=== PATIENT | male | born 1965 | race Caucasian/White ===

== ENCOUNTER 2019-09-28 13:39 | Outpatient (REF) | payer BC, SELFPAY ==
[2019-09-28 14:29] LABS: HCT 48.8 % (40.0-50.0); HGB 16.2 g/dL (13.5-17.5); Mean Corp. HGB Concentration 33.2 g/dL (32.0-36.0); Mean Corpuscular Hemoglobin 28.7 pg (27.0-33.0); Mean Corpuscular Volume 86.4 fL (80-95); Mean Platelet Volume 11.9 fL (8.0-11.0); Platelet Count 218 x1000/uL (130-400); RBC 5.65 m/cumm (4.50-6.00); RBC Distribution Width 13.3 % (11.8-14.1)
[2019-09-28 14:36] LABS: ALT 62 U/L (16-63); AST 29 U/L (15-37); Albumin 3.8 g/dL (3.4-5.0); Alkaline Phosphatase 50 U/L (46-116); BUN 17 mg/dL (7-18); Bilirubin, Total 0.6 mg/dL (0.2-1.0); CREATININE 0.87 mg/dL (0.70-1.30); Calcium 8.8 mg/dL (8.5-10.1); Calculated LDL 129 mg/dL; Chloride 103 mmol/L (98-107); Cholesterol 210 mg/dL (<200); Glucose 93 mg/dL (74-106); HDL Cholesterol 57 mg/dL (40-60); Potassium 4.2 mmol/L (3.5-5.1); Sodium 141 mmol/L (136-145); Triglyceride 124 mg/dL (<150)
[2019-09-28 14:54] LABS: Microalb ug/mg Crea 5.2 ug/mg Cr
== END 2019-09-28 13:59 ==
LOC: NCHCN 13:39
PROVIDERS: PCP Nurse Practitioner Family; Visit Provider Nurse Practitioner Family
DX: R03.0 Elevated blood-pressure reading, without diagnosis of hypertension (principal)
CPT/HCPCS: 80053; 80061; 85027; 82043; 82570

== ENCOUNTER 2020-07-20 15:17 | Emergency (ER) | payer BC, SELFPAY ==
[2020-07-20 15:22] VITALS: BP 162/96; PULSE 77; RESP 18; TEMP 36.4; O2SAT 96
--- NOTE | 2020-07-20 15:30 | DI.US_ITS ---
EXAM: US LOWER EXTREMITY VENOUS LT CLINICAL HISTORY: swelling, pain, r/o DVT TECHNIQUE: Left lower extremity venous ultrasound performed using grayscale, color-flow, and spectra l Doppler analysis. COMPARISON: No exams were available for comparison FINDINGS: The left common femoral and femoral veins demonstrate normal compressibility, augmentation, and color Doppler. There is thrombus seen in the left popliteal vein extending into the mid posterior tibialis vein. There is also a mid posterior left calf vein with acute deep venous thrombus present. The sa phenofemoral junction is unremarkable. There is no evidence of a Torres cyst. The soft tissues are u nremarkable. IMPRESSION: Acute deep venous thrombus involving the left popliteal vein and extending into the mid posterior tib ialis vein. Acute DVT is also seen involving a mid posterior calf vein. DATA REPOSITORY:
--- NOTE | 2020-07-20 15:36 | ED.GENADUL_ITS ---
Discharge Plan Disposition Patient Disposition: HOME Condition: Stable Discharge Details Clinical Impression: Acute deep vein thrombosis (DVT) of left lower extremity Primary Care Provider: Cesar Stoner ED Provider: Daniele Orlelana Home Meds and New Rx's Prescriptions: New apixaban 5 mg tablet 5 mg PO BID 30 Days Qty: 60 RF: 0 No Action ibuprofen 800 mg Tablet 800 mg PO Q8H RF: 0 Discharge Instructions Instructions: Deep Vein Thrombosis (ED) Additional Instructions: Please take the apixaban as prescribed 10 mg twice a day for 7 days, then 5 mg twice a day. We will ask our care management team to arrange a follow-up with you in clinic with Cesar Stoner. Return if you develop chest pain, shortness of breath, cool/pale/numbness of the left leg or any other acute concerns. Medical Decision Making 54-year-old male presents with left calf swelling after walking up and down a ladder painting the exterior of the home this weekend. He does not have chest pain or shortness of breath. No other insult or injury to the area. The leg is edematous and swollen. No palpable cords. Concerning for DVT, Torres's cyst, and patient referred for ultrasound. Patient's ultrasound reveals a positive DVT. Screening labs obtained. I will place him on apixaban. We will arrange an outpatient follow-up with his primary care Cesar Stoner. Lab Data Lab results reviewed: Yes I reviewed the patient's lab results. Labs: Laboratory Results - last 24 hr 07/20/20 07/20/20 07/20/20 16:30 16:30 16:30 WBC 8.97 RBC 5.10 Hgb 14.7 Hct 44.5 MCV 87.3 MCH 28.8 MCHC 33.0 RDW 12.4 Plt Count 133 MPV 11.2 H Immature Gran % 0.6 Neutrophils % 69.4 Lymphocytes % 16.5 Monocytes % 10.7 Eosinophils % 2.2 Basophils % 0.6 Nucleated RBC % 0 Absolute Neutrophils 6.23 Absolute Lymphocytes 1.48 Absolute Monocytes 0.96 H Absolute Eosinophils 0.20 Absolute Basophils 0.05 PT 10.4 INR 1.0 APTT 24.1 Sodium 138 Potassium 3.8 Chloride 104 Carbon Dioxide 26.7 Anion Gap 7.3 BUN 20 H Creatinine 0.91 Estimated GFR/1.73 m2 >= 60.00 Glucose 91 Calcium 8.1 L Total Bilirubin 0.6 AST 28 ALT 44 Alkaline Phosphatase 50 Total Protein 6.8 Albumin 3.5 HPI General Mode of arrival: ambulatory . Date/Time Provider Initiated Documentation: 07/20/20 15:19 . Limitations to Documentation: no limitations . Information obtained by: patient . History of Present Illness 54 year old M presents to the emergency department with the chief complaint of Left calf pain and swelling, described as moderate, Quality is described as dull, and is localized to the left and lower extremity. Patient reports no radiation. Patient started experiencing this day(s) and it has been constant. No relieving factors improve symptom(s), No exacerbating factors reported . Patient notes denies chest pain, shortness of breath and syncope. Patient did receive the following treatments prior to arrival, none Related Data Home Medications Medication Instructions Recorded Confirmed apixaban 5 mg PO BID 30 Days #60 tab 07/20/20 ibuprofen 800 mg PO Q8H 07/20/20 07/20/20 Previous Rx's Medication Instructions Recorded apixaban 5 mg PO BID 30 Days #60 tab 07/20/20 Allergies Allergy/AdvReac Type Severity Reaction Status Date / Time amoxicillin [Amoxicillin] Allergy Severe swelling, Unverified 07/08/20 13:15 hives, blotchy red everywhere General Stated Complaint: Vascular GABE: 3 Review of Systems Narrative: Otherwise healthy and well. 6 systems reviewed and negative. [facility] Social History (Updated 07/08/20 @ 13:44 by SHAD Bell) Smoking/Tobacco Use Status: Never Smoking risk assessment performed?: Yes Alcohol Intake: current Alcohol Intake frequency: holidays/special occasions only Drug use: Never Substance use type: does not use Do you feel safe at home: Yes Do you feel safe in your relationship?: Yes Exam Narrative Exam Narrative: GEN: awake, alert, oriented 3. Pleasant, well groomed, interactive. HEAD: Normocephalic, atraumatic EYES: PERRL, EOMI NECK: Full ROM, no TASHI, no menigismus CHEST/RESP: Nontender, clear to auscultation bilateral, no wheeze/rhonchi/rales CARDIOVASCULAR: RRR, no murmur, rub jennifer. 2+ Rad pulse bilateral EXT: Full ROM, calf swelling approximately 2 cm greater circumference than the left. No laxity of the knee. Normal perfusion. Neuro: Grossly normal neurologic exam, conversant, interactive. Psych: Speech fluent, thoughts congruent, affect normal Course Vital Signs Vital signs: Vital Signs Temperature 36.4 C L 07/20/20 15:22 Pulse 77 07/20/20 15:22 Respiratory Rate 18 07/20/20 15:22 Blood Pressure 162/96 H 07/20/20 15:22 Pulse Oximetry 96 07/20/20 15:22 Temperature 36.4 C L 07/20/20 15:22 Temperature Source Tympanic 07/20/20 15:22 Pulse 77 07/20/20 15:22 Respiratory Rate 18 07/20/20 15:22 Blood Pressure 162/96 H 07/20/20 15:22 Blood Pressure Position Sitting 07/20/20 15:22 Pulse Oximetry 96 07/20/20 15:22 Oxygen Delivery Method Room Air 07/20/20 15:22 Oxygen Flow Rate 0 07/20/20 15:22 Pain Level 4 07/20/20 15:22 Comment 07/20/20 15:22
--- NOTE | 2020-07-20 16:17 | DI.VRAD_ITS ---
PROCEDURE INFORMATION: Exam: US Duplex Left Lower Extremity Veins, Limited Exam date and time: 07/20/2020 4:03 PM Age: 54 years old Clinical indication: Other: Left leg pain and swelling TECHNIQUE: Imaging protocol: Real-time Duplex ultrasound of the Left Lower Extremity with 2-D day scale, color Doppler flow and spectral waveform analysis with image documentation. Limited exam focused on the left lower extremity veins. COMPARISON: No relevant prior studies available. FINDINGS: There is normal compression, flow, and augmentation in the left common femoral vein, superficial femoral vein. However, there are are near total occlusions of the left popliteal vein extending into the mid posterior tibial vein. A mid posterior left calf vein is also remarkable for acute deep venous thrombosis. There is no color flow in the color Doppler interrogation of the affected veins. IMPRESSION: Acute deep venous thrombosis involving the left popliteal vein, middle posterior tibial vein and a mid posterior calf vein. Dictated and Authenticated by: Izabella Mittal MD. Ordering:MARIYA Sanabria MD
--- NOTE | 2020-07-20 16:35 | NUR.NOTE ---
Referral faxed to [facility], within a week f/u for DVTNursing Note:
[2020-07-20 16:36] LABS: Abs Immature Grans 0.05 10^3/uL (0.0-0.06); Absolute Basophil Count 0.05 10^3/uL (0.0-0.2); Absolute Lymphocyte Count 1.48 10^3/uL (1.2-3.4); Absolute Monocyte Count 0.96 10^3/uL (0.1-0.8); Absolute Neutrophil Count 6.23 10^3/uL (1.2-6.7); Basophils % 0.6; Eosinophils % 2.2; HCT 44.5 % (40.0-50.0); HGB 14.7 g/dL (13.5-17.5); Immature Grans % 0.6; Lymphocytes % 16.5; MCH 28.8 pg (27.0-33.0); MCV 87.3 fL (80-95); MPV 11.2 fL (8.0-11.0); Monocytes % 10.7; Neutrophils % 69.4; Nucleated RBC 0 %; Platelet Count 133 10^3/uL (130-400); RDW 12.4 % (11.8-14.1); RDW-SD 39.8 fL; WBC 8.97 10^3/uL (4.4-10.8)
[2020-07-20 16:51] LABS: ALT 44 U/L (16-63); AST 28 U/L (15-37); Albumin 3.5 g/dL (3.4-5.0); Alkaline Phosphatase 50 U/L (46-116); Anion Gap 7.3 mmol/L (3-11); BUN 20 mg/dL (7-18); Bilirubin, Total 0.6 mg/dL (0.2-1.0); CO2 26.7 mmol/L (21.0-32.0); CREATININE 0.91 mg/dL (0.70-1.30); Calcium 8.1 mg/dL (8.5-10.1); Chloride 104 mmol/L (98-107); Glucose 91 mg/dL (74-106); Potassium 3.8 mmol/L (3.5-5.1); Sodium 138 mmol/L (136-145); Total Protein 6.8 g/dL (6.4-8.2)
[2020-07-20 17:00] LABS: PTT Activated 24.1 sec (21.0-27.5); Prothrombin Time 10.4 sec (9.3-11.0)
[2020-07-20] MEDS: Apixaban 5 MG TAB 10 MG PO (17:25)
== END 2020-07-20 17:35 | disposition home or self-care (01) ==
PROVIDERS: Emergency Provider Emergency Medicine; PCP Nurse Practitioner Family
DX: I82.432 Acute embolism and thrombosis of left popliteal vein (principal); I82.442 Acute embolism and thrombosis of left tibial vein; I82.4Z2 Acute embolism and thrombosis of unspecified deep veins of left distal lower extremity
CPT/HCPCS: 36415; 80053; 99284; 85025; 85610; 85730; 93971

== ENCOUNTER 2020-07-21 03:39 | Emergency (ER) | payer BC, SELFPAY ==
[2020-07-21 03:42] VITALS: PULSE 90; RESP 16; TEMP 37.3; O2SAT 97
--- NOTE | 2020-07-21 03:54 | ED.GENADUL_ITS ---
Discharge Plan Disposition Patient Disposition: HOME Condition: Good Discharge Details Clinical Impression: Pain of left calf Primary Care Provider: Cesar Stoner ED Provider: Jerrod Packer Home Meds and New Rx's Prescriptions: Continued apixaban 5 mg tablet 5 mg PO BID 30 Days Qty: 60 RF: 0 Discontinued ibuprofen 800 mg Tablet 800 mg PO Q8H RF: 0 Discharge Instructions Instructions: Deep Vein Thrombosis (ED) Additional Instructions: Please take 1000 mg of Tylenol every 6 hours for pain. If you take a narcotic pain pill, please only take 500 mg of Tylenol as the Ulysses has some Tylenol in it. Please take the Zofran as needed for nausea. Please make sure to elevate your leg above the level of your heart as often as possible. Please use ice to help with the swelling, and an Bhavesh wrap or tight stockings to help with the swelling. Please avoid ibuprofen as this can interact with the apixaban. If you notice any worsening of your symptoms, or any new symptoms such as change in color for your foot, decreased sensation in your foot, worsening pain, or viselike pain, vomiting, diarrhea, fever, chills, shortness of breath, chest pain, numbness, weakness, or fainting , please return immediately to the emergency department for reevaluation. Please follow up with your primary care provider as soon as possible for reassessment and reevaluation. As always, it was a pleasure participating in your medical care today. Referrals: Cesar Stoner, SERVICE ESTABLISHMENT ATTENDANT [Primary Care Provider] - Medical Decision Making 54-year-old female who was just diagnosed with a left lower extremity DVT earlier this afternoon and was started on apixaban presents today for evaluation of pain in his left calf. Patient states that after moving his pain gradually continued throughout the day. He has not taken anything for the pain today. He has returned further recommendations advised to help. He denies any change in sensation, he denies any viselike out and out cigar maker hand-like sensation in his calf. He denies any chest pain or shortness of breath. He has no fever or chills. No numbness or tingling. No other complaints at this time. He has been taking apixaban as directed. Physical exam demonstrates mild swelling of the left calf, when compared to the right. However there is no clinical evidence of compartment syndrome whatsoever. Neurovascular exam is notably intact. He has no chest pain or shortness of breath, no tachycardia or hypoxemia. No evidence of cellulitis. At this time pain is likely secondary to the DVT, and there is no current clinical evidence of acute life-threatening etiology. Will recommend Tylenol, we will give 10 mg Ulysses here, and for pills of 5 mg Ulysses to go. Will give Zofran if any nausea does occur from the Ulysses. Recommend continued ice, notable elevation, and wrapping. Discussed the case with both the patient and his . Discussed red flags which to return. I have extensively reviewed the treatment plan and discharge instructions with the patient and their family. I have addressed all patient concerns at this time. The patient and family was made aware of what symptoms to monitor for that would warrant a return to the emergency department. Discussed the plan with the patient and family, they demonstrate verbal understanding and agreement with our assessment and plan at this time. HPI General Date/Time Provider Initiated Documentation: 07/21/20 03:41 . HPI Narrative: 54-year-old male who was just diagnosed with a left lower extremity DVT earlier this afternoon and was started on apixaban presents today for evaluation of pain in his left calf. Patient states that after moving his pain gradually continued throughout the day. He has not taken anything for the pain today. He has returned further recommendations advised to help. He denies any change in sensation, he denies any viselike out and out cigar maker hand-like sensation in his calf. He denies any chest pain or shortness of breath. He has no fever or chills. No numbness or tingling. No other complaints at this time. He has been taking apixaban as directed. Related Data Home Medications Medication Instructions Recorded Confirmed apixaban 5 mg PO BID 30 Days #60 tab 07/20/20 07/21/20 Previous Rx's Medication Instructions Recorded apixaban 5 mg PO BID 30 Days #60 tab 07/20/20 Allergies Allergy/AdvReac Type Severity Reaction Status Date / Time amoxicillin [Amoxicillin] Allergy Severe Hives Unverified 07/21/20 03:45 General Stated Complaint: Recheck GABE: 4 Review of Systems All systems reviewed & are unremarkable except as noted in HPI and below PFSH Social History Smoking/Tobacco Use Status: Never Smoking risk assessment performed?: Yes Alcohol Intake: current Alcohol Intake frequency: holidays/special occasions only Drug use: Never Substance use type: does not use Do you feel safe at home: Yes Do you feel safe in your relationship?: Yes Exam Narrative Exam Narrative: 1.Const: Well-nourished, Well-developed, appearing stated age 2.Eyes: PERRL, no conjunctival injection, and symmetrical lids. 3.ENT: Atraumatic external nose and ears. Moist MM. Neck: Symmetric, trachea midline, No thyromegaly. 4.CVS: +S1/S2, No murmurs or gallops. Peripheral pulses 2+ and equal in all ext remities. Brisk capillary refill in all extremities. 5.RESP: Unlabored respiratory effort. Clear to auscultation bilaterally. No wheezes rales or rhonchi 6.GI: Soft, Nontender/Nondistended, No hepatosplenomegaly. No guarding or rebound. 7.MSK: Normocephalic/Atraumatic, patient's left lower extremity demonstrates mild swelling in comparison to the right, however it is not tense or firm. No discoloration, dorsalis pedis and posterior tibial pulse +2 bilaterally, good sensation throughout the foot, overall components. No evidence of significant tenderness or ligamentous disruption. No bony tenderness. No evidence of compartment syndrome. 8.Skin: Warm, Dry. No rashes or lesions. 9.Neuro: social services aide II-XII grossly intact. Sensation grossly intact, no focal neurologic deficits. 10.Psych: (AAO) x3. Appropriate mood and affect Course Vital Signs Vital signs: Vital Signs Temperature 37.3 C 07/21/20 03:42 Pulse 90 07/21/20 03:42 Respiratory Rate 16 07/21/20 03:42 Pulse Oximetry 97 07/21/20 03:42 Temperature 37.3 C 07/21/20 03:42 Temperature Source Skin 07/21/20 03:42 Pulse 90 07/21/20 03:42 Respiratory Rate 16 07/21/20 03:42 Blood Pressure Position Sitting 07/21/20 03:42 Pulse Oximetry 97 07/21/20 03:42 Oxygen Delivery Method Room Air 07/21/20 03:42 Oxygen Flow Rate 0 07/21/20 03:42 Pain Level 7 07/21/20 03:42
[2020-07-21] MEDS: HYDROcodone 5/Acetaminophen 325 TAB PO (04:04)
[2020-07-21] MEDS: Ondansetron O.D.T. 4 MG TABEF, 3 TABS/BTL PO (04:04)
== END 2020-07-21 04:10 | disposition home or self-care (01) ==
LOC: ER 04:10
PROVIDERS: Emergency Provider Student in an Organized Health Care Education/Training Program; PCP Nurse Practitioner Family
DX: M79.662 Pain in left lower leg (principal); I82.432 Acute embolism and thrombosis of left popliteal vein
CPT/HCPCS: 99283

== ENCOUNTER 2020-10-03 08:25 | Outpatient (REF) | payer BC, SELFPAY ==
[2020-10-04 09:35] LABS: Hepatitis C Ab w Rflx HCV PCR Negative (Negative)
[2020-10-04 09:41] LABS: HIV-1/2 Ag & Ab Screen Negative (Negative)
[2020-10-04 13:39] LABS: ANA Interpretation Positive (Negative); ANA Titer Pattern 1:80 Speckled
[2020-10-10 18:59] LABS: FACV Specimen Whole Blood
[2020-10-11 17:16] LABS: PT PCR Specimen Whole Blood; Prothrombin G20210A Variant Negative
== END 2020-10-03 08:45 ==
LOC: NCHCN 08:25
PROVIDERS: PCP Nurse Practitioner Family; Visit Provider Nurse Practitioner Family
DX: I82.409 Acute embolism and thrombosis of unspecified deep veins of unspecified lower extremity (principal); Z11.4 Encounter for screening for human immunodeficiency virus [HIV]; Z11.59 Encounter for screening for other viral diseases
CPT/HCPCS: 81240; 81241; 86803; 87389; 86038

== ENCOUNTER 2020-10-11 00:32 | Outpatient (CLI) | payer BC, SELFPAY ==
--- NOTE | 2020-10-11 | DI.US_ITS ---
EXAM: US LOWER EXTREMITY VENOUS LT CLINICAL HISTORY: F/U 07/21/21, DVT,I82.409 TECHNIQUE: Left lower extremity venous ultrasound performed using grayscale, color-flow, and spectra l Doppler analysis. COMPARISON: US US LOWER EXTREMITY VENOUS LT from 07/20/2020 FINDINGS: The left common femoral and femoral demonstrate normal compressibility, augmentation, and color Doppl er. There is thrombus again seen within the left popliteal vein extending into 1 of the posterior tib ialis veins. The thrombus measures approximately 19.4 cm in length. The saphenofemoral junction is unremarkable. There is no evidence of a Torres cyst. The soft tissues are unremarkable. IMPRESSION: Findings positive for DVT within the left popliteal vein extending into 1 of the posterior tibialis v eins. The thrombus measures approximately 19.4 cm in length. Visually, the extent appears unchanged compared to 07/20/2020. DATA REPOSITORY:
== END 2020-10-11 00:33 | disposition home or self-care (01) ==
LOC: DI 00:32
PROVIDERS: PCP Nurse Practitioner Family; Visit Provider Nurse Practitioner Family
DX: I82.432 Acute embolism and thrombosis of left popliteal vein (principal)
CPT/HCPCS: 93971

== ENCOUNTER 2021-03-06 04:07 | Outpatient (CLI) | payer BC, SELFPAY ==
[2021-03-06 11:34] LABS: D-Dimer 339 ng/mlFEU (<500)
[2021-03-09 14:29] LABS: Dilute Russell Viper Venom 43.3 secs (31.9-47.0); LA Cascade Summary (See Note); Silica Clotting Time 45.4 secs (30.2-48.4)
== END 2021-03-06 04:08 | disposition home or self-care (01) ==
LOC: LBO 04:08
PROVIDERS: PCP Nurse Practitioner Family; Visit Provider Internal Medicine Hematology & Oncology
DX: I82.442 Acute embolism and thrombosis of left tibial vein (principal)
CPT/HCPCS: 36415; 87116; 85379

== ENCOUNTER 2023-07-08 10:38 | Day surgery (SDC) | payer BC, SELFPAY ==
[2023-07-08 11:00] VITALS: BP 139/96; PULSE 69; RESP 18; TEMP 36.2; O2SAT 96
--- NOTE | 2023-07-08 12:00 | W.COLOREPORT ---
Date of service: 07/08/23 Time of Service: 12:01 Colonoscopy Report Procedure Description: Procedures performed: 1. Colonoscopy with snare polypectomy x2 2. Cold forceps polypectomy x1 3. Ablation/fulguration/destruction of polyp x1 Preoperative diagnosis: Screening colonoscopy Postoperative diagnosis: Colon polyps, moderate sigmoid diverticulosis Surgeon: Howard Rouse Anesthesia: Sakina Indication for procedure: Patient is a 57-year-old man who has never had a colonoscopy. He has no symptoms. There is no family history of colon cancer. Findings: In the cecum a small 2-3 mm sessile polyp was removed with cold forceps technique. In the transverse colon a very flat polyp about 7 mm in size was removed with hot snare technique. This look like a sessile serrated adenoma. In the rectum there were 2 more 3-5 mm adenomatous?appearing polyps, 1 was removed with hot snare technique and the other 1 was ablated with the tip of the hot snare. There are diverticular changes in the sigmoid colon but no active diverticulitis, stricture or stenosis. No significant hemorrhoidal disease Surveillance/follow-up recommendations: Repeat colonoscopy in 3 years Complications: None Blood loss: Minimal Specimens:?? YES Quality of Prep:?? Good Procedure in detail: Written consent was obtained from the patient who was in agreement with the risks, benefits and indications of the procedure.? We went to the endoscopy suite and laid the patient in left lateral decubitus position.? Anesthesia was administered which was tolerated well.? A timeout was performed and when we are all in agreement we began the procedure. Digital rectal exam and visual examination was performed and within normal limits.? A well?lubricated colonoscope was advanced without difficulty all the way to the cecum identified by the ileocecal valve, and triangular folds and appendiceal orifice.? It was then slowly withdrawn.?? Retroflexion was performed in the rectum.? The findings/interventions are noted above. The scope was then removed and the patient tolerated the procedure well and was then taken back to the PACU in hemodynamically stable condition.
--- NOTE | 2023-07-08 12:03 | W.PM.DSUDISC ---
Date of service: 07/08/23 Time of Service: 12:03 Discharge Plan Disposition Patient Disposition: Home Condition: Good Discharge Details Attending Provider: Josue Rouse Primary Care Provider: José Miguel Marino Home Meds and New Rx's Prescriptions: Continued aspirin 81 mg tablet,delayed release (DR/EC) 81 mg PO DAILY polyethylene glycol 3350 17 gram/dose powder 238 g PO ONCE Qty: 238 0RF Rx Instructions: take per colonoscopy instructions bisacodyl [Dulcolax (bisacodyl)] 5 mg tablet,delayed release (DR/EC) 5 mg PO ONCE Qty: 4 0RF Rx Instructions: take per colonoscopy instructions Discharge Instructions Stand Alone Forms: Anesthesia Discharge Inst., Colonoscopy Post Instructions, Clayton Veloz (DSU) Activity:: Activity as Tolerated Diet:: As Tolerated Discharge Orders Discharge Orders: Discharge Order (Routine); Ordered 07/08/23 Ordered By: Josue Rouse DS: Diagnosis Discharge Diagnosis (1) Colon cancer screening: Status: Acute Asessment and Plan: FINDINGS: Polyps were found and removed from your colon today. This is why we did the procedure. They get sent to pathology and you will get called with those results in another couple of weeks. They are nothing to worry about but mean that you should have another colonoscopy in 3 years. Diverticular findings(diverticulosis) were also found today. This is extremely common and about 50% of the people your age have this disease. It is a benign disease and there is nothing to do about it if you do not have any symptoms of concern.
[2023-07-08 12:05] VITALS: BMI 37.4
--- NOTE | 2023-07-08 12:05 | W.ANESPRE ---
General Info Date of Service Date Performed: 07/08/23 Height: 6 ft Weight: 125.1 kg Body Mass Index (BMI): 37.4 Surgical Procedure: Operation Date: 07/08/23 11:35 Proposed Procedure Side Surgeon p Colonoscopy Josue Rouse MD Meds Allergies and Home Medications Allergies Allergy/AdvReac Type Severity Reaction Status Date / Time amoxicillin [Amoxicillin] Allergy Severe Hives Unverified 07/08/23 11:34 Home Medication Medication Instructions Recorded aspirin 81 mg tablet,delayed 81 mg PO DAILY 06/13/23 release bisacodyl 5 mg tablet,delayed 5 mg PO ONCE colonscopy bowel prep 07/03/23 release (Dulcolax (bisacodyl)) #4 tabs polyethylene glycol 3350 17 238 g PO ONCE colonoscopy prep 07/03/23 gram/dose oral powder #238 grams Current Visit Medications: Current Medications Generic Name Dose Route Start Last Admin Trade Name Freq PRN Reason Stop Dose Admin Ringer's Solution 1,000 mls @ 80 mls/hr 07/08/23 06:00 IV 08/04/23 23:59 INFUSION CJ IV Miscellaneous Supplies 1 each 07/08/23 06:00 Iv Access IV 08/04/23 23:59 DIRECTED CJ Sodium Chloride 0 ml 07/08/23 06:00 Normal Saline Flush 10 Ml Syr IV 08/04/23 23:59 PRN PRN Sodium Chloride 0 ml 07/08/23 06:00 Normal Saline 10 Ml Vial IJ 08/04/23 23:59 DIRECTED PRN Sterile Water 0 ml 07/08/23 06:00 Water,Injection,Sterile 10 Ml Vial IJ 08/04/23 23:59 DIRECTED PRN PFSH Active Problems Active Problems: Problem Status Onset Code Colon cancer screening Z12.11 Skin lesions L98.9 Medical History Medical History (Updated 07/08/23 @ 12:03 by Josue Rouse MD) DVT (deep venous thrombosis) 07/2020 Surgical History Surgical History Hx of wisdom tooth extraction Tobacco Smoking/Tobacco Use Status: Never Alcohol Alcohol Intake: current Alcohol intake frequency: holidays/special occasions only Substance Use Substance use: Never Substance use type: does not use Vital Signs and Lab Results Vital Signs Most Recent Vital Signs in EMR: Most Recent Vital Signs Temp Pulse Resp BP Pulse Ox 36.2 C L 69 18 139/96 H 96 07/08/23 11:00 07/08/23 11:00 07/08/23 11:00 07/08/23 11:00 07/08/23 11:00 Lab Results Blood Type / Crossmatch: No Data to Display Complete Blood Count: No Data to Display Complete Metabolic Panel: No Data to Display Liver Function Panel: No Data to Display Coagulation Panel: No Data to Display Cardiac Panel: No Data to Display Arterial Blood Gas: No Data to Display Venous Blood Gas: No Data to Display Pancreas Panel: No Data to Display Thyroid Panel: No Data to Display Infectious Disease: No Data to Display Blood Cultures: No Data to Display Toxicology Panel: No Data to Display Anesthesia Assessment and Plan Anesthesia History Personal History: No History of Anesthesia Complications Family History: No Family History of Anesthesia Complications Exercise Tolerance Exercise Tolerance: Metabolic Equivalents>4 Pertinent Negatives Pertinent Negatives: No Symptoms of GERD, No Major Cardiovascular Symptoms or Complaints, No Major Pulmonary Symptoms or Complaints and No History of CVA/TIA Cardiac & Pulmonary Exam Cardiac Exam: Normal S1/S2 Heart Sounds Pulmonary Exam: Clear Bilateral Breath Sounds Implantable Cardiac Device Does patient have a Pacemaker or an ICD?: No Airway Exam Known Difficult Airway: No Mallampati Class: 2 Mouth Opening: Normal (> 3cm) Thyromental Distance: Greater than 3 cm Neck Range of Motion: Full ROM Neck Circumference: Thick Teeth Condition: Normal Dentition ASA Classification ASA Score: ASA 2 Emergency Case?: No NPO Status NPO Status: NPO Clears >2 hours, Solids >8 hours Anesthesia Plan Resuscitation Status: Full Code Anesthesia Technique: General Anesthesia Airway Planned: Natural Airway Monitors Used: Standard Monitors
[2023-07-08] MEDS: Lactated Ringers 1,000 ML 80 ML IV (12:08)
--- NOTE | 2023-07-08 12:32 | BOWEL_PTH ---
PATIENT: Tomasz Stacy LOC: [facility] U#:[id number] AGE/SX: 57/M ROOM: RE07/08/[address]: Josue Rouse : 1965 BED: DIS: 07/08/2023 SPEC #: [id number] RECD: 07/08/23 13:28 STATUS: LYDIA REQ #: [id number] LAURA: 07/08/23 12:[address]: Josue Rouse DEPT: Surgical Specimen RECD BY: Elva Prieto ENTERED: 07/08/23 13:28 SP TYPE: Bowel OTHR DR: José Miguel Marino Tissues: 1 - BIOPSY BOWEL 2 - BIOPSY BOWEL R - BIOPSY BOWEL Procedures: GROSS AND MICRO LEVEL 4 Comments: [id number]
[2023-07-08 12:47] VITALS: BP 155/88; PULSE 71; RESP 18; TEMP 36.5; O2SAT 95
--- NOTE | 2023-07-08 12:58 | W.ANESPOSTOP ---
Postoperative Evaluation Date, Time and Location Date Performed: 07/08/23 Time Performed: 12:56 Patient Location: Day Surgery Unit Vital Signs Most Recent Imported Vital Signs: Most Recent Vital Signs Temp Pulse Resp BP Pulse Ox 36.5 C 71 18 155/88 H 95 07/08/23 12:47 07/08/23 12:47 07/08/23 12:47 07/08/23 12:47 07/08/23 12:47 Pain Score Most Recent Pain Score: Most Recent Pain Score Pain Level 0 07/08/23 12:47 Assessment Mental Status: Awake (Alert & Oriented to Patient Baseline) Airway and Respiratory Function: Patent airway with normal (patient baseline) respiratory exam Cardiovascular Function: Hemodynamically Stable Hydration Status: Adequately Hydrated Nausea & Vomiting: No Nausea or Vomiting Pain: Pt. Denies Any Pain Peripheral Nerve Block: Patient did not receive a nerve block
[2023-07-08 13:15] VITALS: BP 133/85; PULSE 61; RESP 18; TEMP 36.5; O2SAT 98
== END 2023-07-08 10:39 | disposition home or self-care (01) ==
PROVIDERS: PCP Family Medicine; Visit Provider Student in an Organized Health Care Education/Training Program
PROC: 0DJD8ZZ Inspection of Lower Intestinal Tract, Via Natural or Artificial Opening Endoscopic (ICD-10-PCS; CPT 45378; principal; 2023-07-08 11:30)
DX: Z12.11 Encounter for screening for malignant neoplasm of colon (principal); D12.0 Benign neoplasm of cecum; K57.30 Diverticulosis of large intestine without perforation or abscess without bleeding; D12.8 Benign neoplasm of rectum; D12.3 Benign neoplasm of transverse colon
CPT/HCPCS: 45385; 45380; 00123; 88305; J2001

== ENCOUNTER → 2023-10-29 03:40 | Outpatient (CLI) | payer BC, SELFPAY ==
--- NOTE | 2023-10-28 | DI.RAD_ITS ---
Exam(s) XR CHEST 2V PA LATERAL EXAM: XR CHEST 2V PA LATERAL CLINICAL HISTORY: Cough, R05.9 TECHNIQUE: 2D digital imaging was performed of the chest. Two images were obtained. PA and lateral views were obtained. COMPARISON: No exams were available for comparison FINDINGS: MEDIASTINUM: Normal. HEART: Normal. PULMONARY VASCULATURE: Normal. LUNGS: Clear. PLEURAL SPACE: No pleural effusion or pneumothorax. BONE:Within normal limits for the patient's age. OTHER FINDINGS:Normal. IMPRESSION: No acute pulmonary findings. DATA REPOSITORY: RADIATION DOSE DELIVERED:
== END ==
PROVIDERS: PCP Family Medicine; Visit Provider Nurse Practitioner Family
DX: R05.9 Cough, unspecified (principal)
CPT/HCPCS: 71046

== ENCOUNTER 2023-11-26 20:51 | Outpatient (REF) | payer BC, SELFPAY ==
[2023-11-26 21:13] LABS: Abs Immature Grans 0.03 10^3/uL (0.0-0.06); Absolute Basophil Count 0.07 10^3/uL (0.0-0.2); Absolute Eosinophil Count 0.29 10^3/uL (0.0-0.7); Absolute Lymphocyte Count 1.78 10^3/uL (1.2-3.4); Absolute Neutrophil Count 4.49 10^3/uL (1.2-6.7); Eosinophils % 3.9; HCT 50.8 % (40.0-50.0); HGB 16.5 g/dL (13.5-17.5); Immature Grans % 0.4; Lymphocytes % 24.2; MCH 28.7 pg (27.0-33.0); MCHC 32.5 % (32.0-36.0); MCV 88 fL (80-95); MPV 11.6 fL (8.0-11.0); Monocytes % 9.5; Platelet Count 199 10^3/uL (130-400); RBC 5.75 10^6/uL (4.36-5.78); RDW 13.1 % (11.8-14.1); RDW-SD 42.4 fL; WBC 7.36 10^3/uL (4.4-10.8)
[2023-11-26 21:43] LABS: D-Dimer 346 ng/mlFEU (<500)
== END 2023-11-26 20:52 | disposition home or self-care (01) ==
LOC: LBN 20:51
PROVIDERS: PCP Family Medicine; Visit Provider Nurse Practitioner Family
DX: R05.3 Chronic cough (principal)
CPT/HCPCS: 85025; 85379

== ENCOUNTER 2024-03-17 11:06 | Outpatient (REF) | payer BC, SELFPAY ==
[2024-03-17 16:07] LABS: Hemoglobin A1C 5.5 % (<5.7)
[2024-03-17 16:30] LABS: Calculated LDL 123 mg/dL (<100); Cholesterol 206 mg/dL (<200); HDL Cholesterol 64 mg/dL (40-60); Triglyceride 99 mg/dL (<150)
== END 2024-03-17 11:07 | disposition home or self-care (01) ==
LOC: NCHCN 11:06
PROVIDERS: PCP Student in an Organized Health Care Education/Training Program; Visit Provider Student in an Organized Health Care Education/Training Program
DX: Z13.220 Encounter for screening for lipoid disorders (principal); Z13.1 Encounter for screening for diabetes mellitus
CPT/HCPCS: 80061; 83036

== ENCOUNTER 2025-07-21 09:44 | Outpatient (REF) | payer OTHER, SELFPAY ==
[2025-07-21 16:22] LABS: Abs Immature Grans 0.04 10^3/uL (0.0-0.06); HCT 51.3 % (40.0-50.0); HGB 17.1 g/dL (13.5-17.5); Immature Grans % 0.6 %; MCH 29.1 pg (27.0-33.0); MCHC 33.3 % (32.0-36.0); MCV 87 fL (80-95); MPV 11.9 fL (8.0-11.0); Platelet Count 174 10^3/uL (130-400); RBC 5.87 10^6/uL (4.36-5.78); RDW 12.8 % (11.8-14.1); RDW-SD 41.4 fL; WBC 7.01 10^3/uL (4.4-10.8)
[2025-07-21 17:40] LABS: Hemoglobin A1C 5.5 % (<5.7)
== END 2025-07-21 09:45 | disposition home or self-care (01) ==
LOC: NCHCN 09:44
PROVIDERS: PCP Student in an Organized Health Care Education/Training Program; Visit Provider Student in an Organized Health Care Education/Training Program
DX: Z13.1 Encounter for screening for diabetes mellitus (principal); G47.33 Obstructive sleep apnea (adult) (pediatric)
CPT/HCPCS: 83036; 85025